=== PATIENT | female | born 1935 | race Caucasian/White ===

== ENCOUNTER 2017-02-10 10:32 | Outpatient (CLI) | payer MEDICARE | END 2017-02-10 10:33 | disposition home or self-care (01) | LOC: CTENTCT 10:32 | PROVIDERS: ATTEND Specialist | DX: J32.9 Chronic sinusitis, unspecified (principal) | CPT/HCPCS: 70486 ==

== ENCOUNTER 2020-01-29 11:59 | Outpatient (CLI) | payer MEDICARE ==
--- NOTE | 2020-01-29 12:43 | RAD ---
XR Knee Lt 3 View HISTORY: Left knee pain FINDINGS: No fracture or dislocation is identified. Degenerative changes are seen.
== END 2020-01-29 12:00 | disposition home or self-care (01) ==
LOC: BICRAD 11:59
PROVIDERS: ATTEND Family Medicine
DX: M25.562 Pain in left knee (principal)
CPT/HCPCS: 36415; 80053; 82306; 82607; 82746; 84443; 85025

== ENCOUNTER 2020-12-18 08:41 | Outpatient (CLI) | payer MEDICARE ==
[2020-12-18 10:25] LABS: #Basophils 0.1 10x3/uL (0.0-0.2); #Eosinphils 0.1 10x3/uL (0.0-0.5); #Monocytes 0.6 10x3/uL (0.0-1.1); #Neutrophils 4.7 10x3/uL (1.5-8.4); %Eosinophils 1.2 % (0.0-6.0); %Lymphocytes 18.4 % (18.0-47.0); %Monocytes 8.9 % (0.0-10.0); %Neutrophils 70.2 % (40.0-75.0); Hemoglobin 14.6 g/dL (12.0-15.5); Mean Corpuscular HGB CONC 32.6 g/dL (32.0-36.0); Mean Corpuscular Hemoglobin 30.5 pg (27.0-33.0); Mean Corpuscular Volume 93.7 fl (81.6-98.3); Mean Platelet Volume 12.6 fl (7.4-10.4); Platelet Count 140 10x3/uL (150-450); RBC Distribution Width 13.3 % (11.5-14.5); Red Blood Cell (RBC) Count 4.78 10x6/uL (3.90-5.03); White Blood Cell (WBC) Count 6.8 10x3/uL (3.5-10.5)
[2020-12-18 10:34] LABS: Anion Gap 15 mmol/L (10-20); BUN (Urea Nitrogen) 12 mg/dL (9.8-20.1); Calc. Creatinine Clearance 0 mL/min (70-130); Calcium 9.5 mg/dL (7.8-10.44); Carbon Dioxide 25 mmol/L (23-31); Chloride 107 mmol/L (98-107); Glucose 93 mg/dL (83-110); Potassium 4.5 mmol/L (3.5-5.1); Sodium 142 mmol/L (136-145)
[2020-12-18 18:23] LABS: SARS-CoV-2 PCR by NAA Not Detected (NotDetected)
== END 2020-12-18 08:42 | disposition home or self-care (01) ==
LOC: LABBT 08:41
PROVIDERS: ATTEND Internal Medicine Cardiovascular Disease
DX: Z01.818 Encounter for other preprocedural examination (principal); I34.2 Nonrheumatic mitral (valve) stenosis; Z20.822 Contact with and (suspected) exposure to COVID-19
CPT/HCPCS: 80048; 85025; 93005; U0003; U0005; 93010

== ENCOUNTER 2020-12-23 05:59 | Day surgery (SDC) | payer MEDICARE ==
[2020-12-20 10:24] VITALS: BMI 22.8
[2020-12-23] MEDS ORDERED: PROPOFOL 200 MG/20 ML VIAL ONE (07:39)
== END 2020-12-23 09:01 | disposition home or self-care (01) ==
LOC: CCL 05:59
PROVIDERS: ATTEND Internal Medicine Cardiovascular Disease
PROC: B246ZZ4 Ultrasonography of Right and Left Heart, Transesophageal (ICD-10-PCS; principal; 2020-12-23)
DX: I08.3 Combined rheumatic disorders of mitral, aortic and tricuspid valves (principal); E78.5 Hyperlipidemia, unspecified; J44.9 Chronic obstructive pulmonary disease, unspecified; E03.9 Hypothyroidism, unspecified; F17.210 Nicotine dependence, cigarettes, uncomplicated; N28.9 Disorder of kidney and ureter, unspecified; Z86.73 Personal history of transient ischemic attack (TIA), and cerebral infarction without residual deficits; Z79.82 Long term (current) use of aspirin; Z79.899 Other long term (current) drug therapy
CPT/HCPCS: 93312; J2704

== ENCOUNTER 2021-11-11 08:52 | Outpatient (CLI) | payer MEDICARE | END 2021-11-11 08:53 | disposition home or self-care (01) | LOC: BICMAMMO 08:52 | PROVIDERS: ATTEND Internal Medicine Hematology & Oncology | DX: Z12.31 Encounter for screening mammogram for malignant neoplasm of breast (principal); Z98.890 Other specified postprocedural states; Z85.3 Personal history of malignant neoplasm of breast; Z80.3 Family history of malignant neoplasm of breast | CPT/HCPCS: 77063; 77067 ==